=== PATIENT | male | born 1960 | race Caucasian/White ===

== ENCOUNTER → 2018-05-11 | Outpatient (CLI) | payer BC | LOC: COL.RAD 09:40 | DX: K80.20 Calculus of gallbladder without cholecystitis without obstruction (principal) ==

== ENCOUNTER 2019-09-20 15:25 | Inpatient (IN) | payer BC ==
[~2019-09-20] VITALS: Ht 182.9 cm; Wt 102.1 kg
[2019-09-20 16:29] LABS: COLLECTION METHOD CLEAN CATCH
[2019-09-20 16:33] LABS: C-REACTIVE PROTEIN 4.3 mg/dL (0.0-0.9)
[2019-09-20 16:40] LABS: PH 7 (5-8); SQUAMOUS EPITHELIAL None Seen /hpf; URINE APPEARANCE Clear; URINE BACTERIA None Seen /hpf; URINE BILIRUBIN Negative (NEGATIVE); URINE BLOOD Negative (NEGATIVE); URINE COLOR Yellow; URINE GLUCOSE Negative (NEGATIVE); URINE KETONE 1+ (NEGATIVE); URINE LEUKOCYTE ESTERASE Negative (NEGATIVE); URINE NITRATE Negative (NEGATIVE); URINE PROTEIN(semi-quant) Negative (NEGATIVE); URINE RBC 0-2 /hpf; URINE UROBILINOGEN >=4.0 mg/dL (NEGATIVE)
[2019-09-20] MEDS ORDERED: SYNTHROID0.088 MG/T PO (17:26)
--- NOTE | 2019-09-20 18:04 | NUR ---
Patient to room via stretcher from ER. Ambulates from stretcher to bed. Pain increases with movement. Changed into gown. Oriented to room and assessment completed at this time. with the patient.
[2019-09-20] MEDS ORDERED: TYLENOL 500MG500 MG PO (18:06)
[2019-09-20 18:07] VITALS: BP 132/105; PULSE 96; TEMP 99.8
[2019-09-20] MEDS ORDERED: ADVIL200 MG PO (18:07)
[2019-09-20 19:38] VITALS: BP 160/76; PULSE 94; TEMP 99.5
[2019-09-21] VITALS (13 sets, daily range): BP systolic 122–152; BP diastolic 62–77; PULSE 74–100; TEMP 97.7–99.5
--- NOTE | 2019-09-21 05:00 | NUR ---
Patient slept well throughout the night. PRN Dilaudid given as requested at 2028, 2252, 218, and 050. This was effective for pain relief. Patient did complain of a headache, and Dr. Lara notified for Tylenol orders which this nurse recieved and administered at 2238. Patient stated some relief, but was educated on the side effect of headaches with dilaudid usage. Patient verbalized understanding. IVF continue to right AC. Patient complained of nausea at 2244 and Zofran was given at 2252. This was effective. Patient independent to the bathroom.
--- NOTE | 2019-09-21 08:00 | NUR ---
PATIENT IS A&O. VSS. C/O PAIN IN ABD RATED AT 3/10 AND STATES HE IS SUFFERING FROM A BAD FOSTER. GAVE PRN TYLENOL, TWO TABS WITH A FEW SIPS. PATIENT NPO FOR HERIBERTO LATER TODAY. IV FLUIDS INFUSING VIA PUMP INTO RIGHT AC IV. CONSENT SIGNED AND ON CHART. HEAD TO TOE WNL. NO OTHER NEEDS. CALL LIGHT IN REACH.
--- NOTE | 2019-09-21 10:08 | NUR ---
SW met with the patient to discuss discharge plan. The patient lives in [place] with his , Leora (ph#[phone]). He reports independence with ADLs and does not have any DME. The patient's PCP is Dr. Jose Luis Peña and he receives his medications at [facility]. He reports no difficulties obtaining his meds. The patient does not have advanced directives and he was not interested in completing them at this time. The patient plans to return home with his upon discharge. No additional needs at this time.
--- NOTE | 2019-09-21 11:55 | NUR ---
First visit from the bellows tester. no needs right now.
--- NOTE | 2019-09-21 13:42 | NUR ---
PATIENT GOING DOWN TO THE OR VIA BED. AT BEDSIDE.
--- NOTE | 2019-09-21 17:40 | NUR ---
PATIENT BACK IN ROOM POST OP. A&O. VSS. REPORTS PAIN IS MANAGED AT THIS TIME. ABD LAP SITES X3 ARE CD&I. BRANT DRAIN TO COMPRESSION WITH SMALL AMOUNTS OF BLOODY DRAINAGE NOTED. BOWL SOUNDS PRESENT X4 QUADS. PATIENT C/O NAUSEA IN PACU AND WAS TREATED. NO C/O NAUSEA AT THIS TIME. HEAD TO TOE ASSESSMENT WNL. AT BEDSIDE. CALL LIGHT IN REACH.
[2019-09-22 00:20] VITALS: BP 127/69; PULSE 85; TEMP 98.6
--- NOTE | 2019-09-22 01:22 | NUR ---
Patient has rested well so far this shift. Requests pain medication at 2044 and Percocet was administered at 2056. Patient called at 0 and stated his pain was coming back. PRN Motrin administered. Patient has been asleep since this was administered. ADAM drain to abdomen draining red drainage. Lap sites x3 covered with bandaids are clean, dry, and intact. Patient ambulates to the bathroom independently. Will continue to monitor.
[2019-09-22 05:04] VITALS: BP 127/68; PULSE 88; TEMP 98.8
[2019-09-22 07:48] VITALS: BP 122/69; PULSE 82; TEMP 98.4
--- NOTE | 2019-09-22 07:50 | NUR ---
Patient in bed resting. Alert and oriented x 3. Assessment complete. Lap sites x3 with edges well approximated, Drain site with gauze is CDI. ADAM to bulb compression with serosanguinous drainage present. States pain 2/10 to abdomen. INT to right AC without complications. Independent in room. Denies further needs at this time.
--- NOTE | 2019-09-22 09:00 | NUR ---
Patient spouse in to see patient.
[2019-09-22 09:09] LABS: HEMATOCRIT 40.3 % (42.0-52.0); HEMOGLOBIN 13.7 g/dl (13.5-18.0)
[2019-09-22 09:19] LABS: CALCIUM 8.6 mg/dL (8.4-10.2); CREATININE, serum 0.88 (0.66-1.25); POTASSIUM 3.8 mmol/L (3.4-5.0)
--- NOTE | 2019-09-22 11:35 | NUR ---
Discharge education provided to patient and spouse. Educated on ADAM drain care and documenting out put. Educated on signs and symptoms of infection and when to call provider. Educated on follow up appointments and medication safety. All questions answered. INT to right AC discontinued, catheter tip intact. No further needs at this time. Patient out by wheelchair with surgical staff and spouse.
== END 2019-09-22 11:40 | disposition home or self-care (01) | DRG 419 ==
LOC: COL.ER 15:25 → SURG 16:59
PROVIDERS: Emergency Medicine; ADMIT Surgery
PROC: 8E0W4CZ Robotic Assisted Procedure of Trunk Region, Percutaneous Endoscopic Approach (ICD-10-PCS; 2019-09-21)
PROC: 0FT44ZZ Resection of Gallbladder, Percutaneous Endoscopic Approach (ICD-10-PCS; principal; 2019-09-21 15:00)
DX: K80.00 Calculus of gallbladder with acute cholecystitis without obstruction (principal); K42.9 Umbilical hernia without obstruction or gangrene
CPT/HCPCS: OP; G0378; J0330; J0690; J1100; J1170; J1885; J2405; J2543; J2550; J2704; J2710; J3010; J7030; Q9967

== ENCOUNTER 2019-09-29 06:03 | Day surgery (SDC) | payer BC ==
[2019-09-29] VITALS (10 sets, daily range): BP systolic 121–142; BP diastolic 76–85; PULSE 61–70; TEMP 98.2–98.3
[~2019-09-29] VITALS: Ht 182.9 cm; Wt 100.0 kg
[~2019-09-29 06:03] MED LIST: ADVIL200 MG PO; SYNTHROID0.088 MG/T PO; TYLENOL 500MG500 MG PO
[2019-09-29] MEDS ORDERED: TYLENOL 500MG500 MG PO (06:42)
[2019-09-29] MEDS ORDERED: ADVIL200 MG PO (06:43)
[2019-09-29] MEDS ORDERED: SYNTHROID0.088 MG/T PO (06:44)
--- NOTE | 2019-09-29 08:40 | NUR ---
0740 PATIENT ARRIVED TO [facility] VIA CART. AMBULATED FROM CART TO CHAIR WITH A STEADY GAIT. VSS. AT BEDSIDE. 0758 PATIENT C/O PAIN TO ABDOMEN. RATES 08/13. DR. GUILLEN NOTIFIED. NEW ORDERS RECIEVED. FENTANYL 50 MCG IV GIVEN PER FR. ORDER. 0820 PATIENT REPORTS IMPROVED COMFORT. RATES 04/15. PATIENT DRANK APPLE JUICE. DENIES ANY NEEDS AT THIS TIME.
--- NOTE | 2019-09-29 09:44 | NUR ---
0940 PATIENT DISCHARGED TO POV PER W/C WITH . WRITTEN D/C INSTRUCTIONS SENT HOME WITH PATIENT.
== END 2019-09-29 09:40 | disposition home or self-care (01) ==
LOC: SDCO 06:03
DX: K80.50 Calculus of bile duct without cholangitis or cholecystitis without obstruction (principal); K83.8 Other specified diseases of biliary tract; Z90.49 Acquired absence of other specified parts of digestive tract; E78.00 Pure hypercholesterolemia, unspecified
CPT/HCPCS: C1769; C2625; J2250; J2704; J3010; J7120; Q9967

== ENCOUNTER 2019-11-18 10:00 | Day surgery (SDC) | payer BC ==
[~2019-11-18] VITALS: Ht 182.9 cm; Wt 100.9 kg
[2019-11-18 10:24] VITALS: BP 140/85; PULSE 58; TEMP 98.3
--- NOTE | 2019-11-18 10:35 | NUR ---
TO RM 5 AT 1005- CALL LIGHT IN REACH WILL CALL FOLLOWING PROCEDURE.
[2019-11-18 11:45] VITALS: BP 110/73; PULSE 69; TEMP 98
[2019-11-18 12:00] VITALS: BP 110/80; PULSE 67
--- NOTE | 2019-11-18 12:00 | NUR ---
RECEIVED WATER AND TOLERATING WELL.
[2019-11-18 12:15] VITALS: BP 126/84; PULSE 65
--- NOTE | 2019-11-18 12:15 | NUR ---
RECEIVED DISCHARGE INSTRUCTIONS AND VERBALIZED UNDERSTANDING. DISCONINUED IV AND INT- CATHETER INTACT. PATIENT TEXTED FOR RIDE HOME. PATIENT DRESSED SELF AND AMBULATED TO BATHROOM.
--- NOTE | 2019-11-18 12:30 | NUR ---
DISCHARGED PER WC BY NURSING STAFF TO PRIVATE CAR IN CARE OF BR[facility]NEY.
--- NOTE | 2019-11-18 12:35 | NUR ---
TO RM 5 PER CART FOLLOWING AN ERCP. ALERT ORIENTED X3, TALKING WITH STAFF. AMBULATED TO RECLINER WITH ASSIST. DR GUILLEN INTO TALK WITH PATIENT.
== END 2019-11-18 12:41 | disposition home or self-care (01) ==
LOC: SDCO 10:00
DX: K83.8 Other specified diseases of biliary tract (principal); K31.89 Other diseases of stomach and duodenum; E78.00 Pure hypercholesterolemia, unspecified; E03.9 Hypothyroidism, unspecified; Z20.828 Contact with and (suspected) exposure to other viral communicable diseases
CPT/HCPCS: C1769; J2704; J7120; Q9967